=== PATIENT | male | born 1965 ===

== ENCOUNTER 2016-10-27 13:08 | Emergency (ER) | payer MEDICAID | END 2016-10-27 15:45 | disposition left against medical advice (07) | LOC: D.ER 13:08 | DX: R68.84 Jaw pain (principal) ==

== ENCOUNTER 2016-10-28 12:40 | Emergency (ER) | payer MEDICAID | END 2016-10-28 14:33 | disposition home or self-care (01) | LOC: D.ER 12:40 | DX: K08.89 Other specified disorders of teeth and supporting structures (principal); K04.7 Periapical abscess without sinus ==